=== PATIENT | female | born 1955 | race Caucasian/White ===

== ENCOUNTER 2018-06-09 10:35 | Day surgery (SDC) | payer OTHER ==
[2018-06-06 14:06] VITALS: BMI 33.3
[2018-06-09 11:13] VITALS: TEMP 97.9
[2018-06-09 13:16] VITALS: BP 108/56; PULSE 79
--- NOTE | 2018-06-11 16:50 | PATH ---
Surgical Pathology Report Patient Name: IGLESIA CARRILLO [facility]. Rec. #: [id number] /Age/Gender: 1955 (Age: 63) / F Account: [id number] Location: [facility] Taken: 06/09/2018 Received: 06/09/2018 Reported: 06/11/2018 Physicians: Leon Maldonado M.D. Specimen(s) Received A: DUODENUM BIOPSY B: ANTRUM BIOPSY Clinical History Abdominal pain Postoperative diagnosis: Normal Final Diagnosis A. DUODENUM, BIOPSY: DUODENAL MUCOSA WITHOUT SIGNIFICANT PATHOLOGIC FINDINGS. B. ANTRUM, BIOPSY: GASTRIC ANTRAL MUCOSA WITH MILD CHRONIC GASTRITIS. IMMUNOHISTOCHEMICAL STAIN FOR H. PYLORI IS NEGATIVE. Electronically Signed Shannon Downey M.D. Gross Description A. Received in formalin, labeled "duodenum biopsy" are 2 quinn, irregular portions of soft tissue averaging 0.4 cm. in greatest dimension. The specimens are submitted in toto in one cassette. B. Received in formalin, labeled "antrum biopsy" are 2 quinn, irregular portions of soft tissue measuring 0.4 and 0.5 cm. in greatest dimension. The specimens are submitted in toto in one cassette. /06/10/2018 saudi06/10/2018
== END 2018-06-09 13:25 | disposition home or self-care (01) ==
LOC: FASU-ENDO 10:35
PROVIDERS: ATTEND Internal Medicine Gastroenterology
PROC: 0DB98ZX Excision of Duodenum, Via Natural or Artificial Opening Endoscopic, Diagnostic (ICD-10-PCS; 2018-06-09)
PROC: 0DB68ZX Excision of Stomach, Via Natural or Artificial Opening Endoscopic, Diagnostic (ICD-10-PCS; 2018-06-09)
PROC: 0DJD8ZZ Inspection of Lower Intestinal Tract, Via Natural or Artificial Opening Endoscopic (ICD-10-PCS; principal; 2018-06-09 11:30)
DX: K29.50 Unspecified chronic gastritis without bleeding (principal); R10.9 Unspecified abdominal pain
CPT/HCPCS: 82962; 88305-TC; 88342-TC